=== PATIENT | male | born 1985 | race Caucasian/White ===

== ENCOUNTER → 2021-05-19 09:21 | Outpatient (BNVA) | payer SELFPAY | PROVIDERS: Referring Provider Clinical Nurse Specialist Adult Health; Visit Provider Dermatology | DX: Z01.89 Encounter for other specified special examinations (principal) | CPT/HCPCS: 83721 ==

== ENCOUNTER → 2021-08-18 08:27 | Outpatient (BNVA) | payer SELFPAY | PROVIDERS: Referring Provider Clinical Nurse Specialist Adult Health; Visit Provider Dermatology | DX: Z01.89 Encounter for other specified special examinations (principal) ==

== ENCOUNTER → 2021-11-17 08:02 | Outpatient (BNVA) | payer SELFPAY | PROVIDERS: Referring Provider Clinical Nurse Specialist Adult Health; Visit Provider Dermatology | DX: Z01.89 Encounter for other specified special examinations (principal) ==

== ENCOUNTER → 2022-02-16 08:15 | Outpatient (BNVA) | payer SELFPAY | PROVIDERS: PCP Clinical Nurse Specialist Adult Health; Visit Provider Dermatology | DX: Z01.89 Encounter for other specified special examinations (principal) ==

== ENCOUNTER → 2022-08-17 09:25 | Outpatient (BNVA) | payer SELFPAY | PROVIDERS: PCP Clinical Nurse Specialist Adult Health; Visit Provider Dermatology | DX: Z01.89 Encounter for other specified special examinations (principal); Z13.6 Encounter for screening for cardiovascular disorders ==

== ENCOUNTER → 2023-08-16 08:18 | Outpatient (BNVA) | payer SELFPAY | PROVIDERS: PCP Clinical Nurse Specialist Adult Health; Visit Provider Dermatology | DX: Z01.89 Encounter for other specified special examinations (principal) | CPT/HCPCS: 83721 ==

== ENCOUNTER → 2023-11-11 07:47 | Outpatient (BNVA) | payer BC, SELFPAY | PROVIDERS: PCP Clinical Nurse Specialist Adult Health; Visit Provider Clinical Nurse Specialist Adult Health | DX: E11.9 Type 2 diabetes mellitus without complications (principal) | CPT/HCPCS: 80053; 80061; 83036; 85025 ==

== ENCOUNTER 2023-11-22 16:07 | Outpatient (CLI) | payer BC, SELFPAY ==
--- NOTE | 2023-11-22 16:14 | XR_ITS ---
WS: [id number] Exam: XR shoulder RT min 2V* [id number] Date/Time of Exam: 11/22/2023 4:15 PM Reason For Exam: right shoulder pain No fracture or dislocation. Articular relationships are intact. Normal soft tissues. XR/XR shoulder RT min 2V* [id number] IMPRESSION: 1. Negative RIGHT shoulder.
== END 2023-11-22 16:08 | disposition home or self-care (01) ==
PROVIDERS: PCP Clinical Nurse Specialist Adult Health; Visit Provider Clinical Nurse Specialist Adult Health
DX: M25.511 Pain in right shoulder (principal)
CPT/HCPCS: 73030

== ENCOUNTER 2023-12-22 16:50 | Outpatient (RCR) | payer BC, SELFPAY | END 2024-01-04 23:59 | disposition home or self-care (01) | LOC: SPT 16:50 | PROVIDERS: PCP Clinical Nurse Specialist Adult Health; Visit Provider Clinical Nurse Specialist Adult Health | DX: M25.511 Pain in right shoulder (principal) | CPT/HCPCS: 97110; 97161 ==

== ENCOUNTER 2024-01-05 06:00 | Outpatient (RCR) | payer BC, SELFPAY | END 2024-02-04 23:59 | disposition home or self-care (01) | LOC: SPT 06:00 | PROVIDERS: PCP Clinical Nurse Specialist Adult Health; Visit Provider Clinical Nurse Specialist Adult Health | DX: M25.511 Pain in right shoulder (principal) | CPT/HCPCS: 97110 ==

== ENCOUNTER → 2024-08-14 07:39 | Outpatient (BNVA) | payer BC, SELFPAY | PROVIDERS: PCP Family Medicine; Visit Provider Dermatology | DX: Z01.89 Encounter for other specified special examinations (principal) | CPT/HCPCS: 83721 ==